=== PATIENT | female | born 1985 | race Caucasian/White ===

== ENCOUNTER 2020-09-18 12:05 | Emergency (ER) | payer SELFPAY ==
[2020-09-18 15:40] LABS: Absolute Lymphocytes (CBC) 3.1 K/uL (0.7-4.9); Basophils % 0.6 % (0-1.3); Hematocrit 40.2 % (36.0-45.0); Lymphocytes % 26.6 % (15.3-44.8); MPV 8.5 fL (7.6-11.3); RBC Red Blood Cell Count 4.98 M/uL (3.86-4.86)
[2020-09-18 15:52] LABS: Urine Blood NEGATIVE (NEG); Urine Glucose NEGATIVE (NEG); Urine Protein NEGATIVE (NEG); Urine Specific Gravity 1.025 (1.005-1.030); Urine pH 5.5 (5.0-7.0)
[2020-09-18 16:06] LABS: ALT/SGPT 27 U/L (12-78); AST/SGOT 21 U/L (15-37); Albumin 3.8 g/dL (3.4-5.0); Alkaline Phosphatase 65 U/L (45-117); BUN Blood Urea Nitrogen 7 mg/dL (7-18); Bicarbonate 27 mmol/L (21-32); Bilirubin Direct < 0.1 mg/dL (0-0.2); Bilirubin Total 0.3 mg/dL (0.2-1.0); Glucose Level 123 mg/dL (74-106); Lipase 110 U/L (73-393); Potassium 3.5 mmol/L (3.5-5.1); Protein, Total 8.5 g/dL (6.4-8.2); Sodium Level 140 mmol/L (136-145)
--- NOTE | 2020-09-18 17:13 | RAD REPORT ---
EXAM DESCRIPTION: CT - Abdomen Pelvis W Contrast - 09/18/2020 4:36 pm CLINICAL HISTORY: lower abdominal pain, blood stools COMPARISON: No comparisons TECHNIQUE: Biphasic, helical CT imaging of the abdomen and pelvis was performed following 100 ml non -ionic IV contrast. Oral contrast was given. All CT scans are performed using dose optimization technique as appropriate and may include automated exposure control or mA/KV adjustment according to patient size. FINDINGS: No suspicious findings in the lung bases. The liver, spleen, and pancreas show no suspicious findings. Gallbladder and biliary tree are also wi thout suspicious finding. Symmetric renal function is seen with no hydronephrosis or suspicious renal mass. No pyelonephritis o r acute parenchymal process. No bladder abnormalities. No adrenal abnormalities. Uterus is absent. Luis Miguel th ovaries contain several small cysts or follicles no larger than 2 cm. An acute or worrisome ovaria n process is not suspected. Stomach and small bowel show no acute findings. Circumferential wall thickening or edema seen across the transverse colon. Remainder of the colon shows no wall thickening or edema. No focal mass lesion. Appendectomy clips are evident. No free air, free fluid or inflammatory stranding. No hernia, mass or bulky lymphadenopathy. No suspicious bony findings. IMPRESSION: Colitis pattern is evident involving the entire transverse colon. No mass lesion. No obstruction, free air or surgically emergent finding.
--- NOTE | 2020-09-18 17:22 | ER ---
Nurse's Notes [facility] Name: Sapna Garrison Age: 35 yrs Sex: Female : 1985 Arrival Date: 09/18/2020 Time: 12:08 Bed 24 Private MD: Diagnosis: Transverse Colitis Presentation: 09/18 12:19 Chief complaint: Patient states: Lower abd pain/bloating for 3 days. Noticed blood in ss diarrhea stool since 3 am. No fever. Coronavirus screen: Client denies travel out of the [place] in the last 14 days. At this time, the client does not indicate any symptoms associated with coronavirus-19. Ebola Screen: Patient denies travel to an Ebola-affected area in the 21 days before illness onset. Initial Sepsis Screen: Does the patient meet any 2 criteria? No. Patient's initial sepsis screen is negative. Does the patient have a suspected source of infection? Yes: Skin breakdown/wound. Risk Assessment: Do you want to hurt yourself or someone else? Patient reports no desire to harm self or others. Onset of symptoms was September 16, 2020. 12:19 Method Of Arrival: Ambulatory ss 12:19 Acuity: GIGI 3 ss Historical: - Allergies: 12:19 Sulfa (Sulfonamide Antibiotics); ss - PMHx: 12:19 Hypertension; diabetes-no meds; ss - PSHx: 12:19 Hysterectomy; ss - Immunization history:: Flu vaccine is not up to date. - Social history:: Smoking status: Patient denies any tobacco usage or history of. Screenin:26 Abuse screen: Denies threats or abuse. Denies injuries from another. Nutritional ec1 screening: No deficits noted. Tuberculosis screening: No symptoms or risk factors identified. Fall Risk No fall in past 12 months (0 pts). No secondary diagnosis (0 pts). IV access (20 points). Ambulatory Aid- None/Bed Rest/Nurse Assist (0 pts). Gait- Normal/Bed Rest/Wheelchair (0 pts) Mental Status- Oriented to own ability (0 pts). Assessment: 15:26 General: Appears in no apparent distress. uncomfortable, Behavior is calm, cooperative. ec1 Pain: Complains of pain in abdomen Pain currently is 8 out of 10 on a pain scale. Neuro: Level of Consciousness is awake, alert, obeys commands. Cardiovascular: Patient's skin is warm and dry. Respiratory: Airway is patent Respiratory effort is even, unlabored, Respiratory pattern is regular. GI: Abdomen is round obese, Bowel sounds present X 4 quads. Abd is soft X 4 quads Abdomen is tender to palpation X 4 quads. Reports lower abdominal pain, upper abdominal pain, bloody stool, nausea, Patient currently denies vomiting. : No signs and/or symptoms were reported regarding the genitourinary system. EENT: No signs and/or symptoms were reported regarding the EENT system. Derm: No signs and/or symptoms reported regarding the dermatologic system. Musculoskeletal: No signs and/or symptoms reported regarding the musculoskeletal system. 16:17 Reassessment: Patient appears in no apparent distress at this time. No changes from ec1 previously documented assessment. Patient and/or family updated on plan of care and expected duration. Pain level reassessed. Vital Signs: 12:19 BP 160 / 93; Pulse 79; Resp 17; Temp 98.2; Pulse Ox 100% ; Weight 96.62 kg; Height 5 ss ft. 3 in. (160.02 cm); Pain 8/10; 16:17 BP 149 / 82; Pulse 69; Resp 16 S; Pulse Ox 99% on R/A; Pain 9/10; ec1 17:32 BP 153 / 90; Pulse 71; Resp 16 S; Pulse Ox 100% on R/A; ec1 12:19 Body Mass Index 37.73 (96.62 kg, 160.02 cm) ED Course: 12:08 Patient arrived in ED. mr 12:19 Arm band placed on. ss 12:22 Triage completed. ss 13:27 UA collection ok'd by Dr. Dillard. ss 15:05 Fady Nuñez PA is PHCP. [facility] 15:05 Denise Dillard MD is Attending Physician. jmm 15:05 Linda Andino, MELISSA is Primary Nurse. ec1 15:26 Patient has correct armband on for positive identification. Bed in low position. ec1 15:26 Inserted saline lock: 20 gauge in right antecubital area, using aseptic technique. ec1 Blood collected. 16:[address] via stretcher. ec1 16:36 CT Abd/Pelvis - IV Contrast Only In Process Unspecified. EDMS 17:21 Reece Cortez MD is Referral Physician. [facility] 17:44 IV discontinued, intact, bleeding controlled. ec1 17:44 No provider procedures requiring assistance completed. ec1 Administered Medications: No medications were administered Outcome: 17:21 Discharge ordered by . [facility] 17:44 Discharged to home ambulatory. ec1 17:44 Condition: good 17:44 Discharge instructions given to patient, Instructed on discharge instructions, follow up and referral plans. Demonstrated understanding of instructions, follow-up care, medications, Prescriptions given X 3. 17:45 Patient left the ED. ec1 Signatures: Dispatcher [employer] [facility] Fady Nuñez PA PA jmm Rivera, Mary mr Shilpi King, RN RN Linda Stearns RN RN ec1
--- NOTE | 2020-09-18 17:22 | EDPHYS ---
Physician Documentation [facility] Name: Sapna Garrison Age: 35 yrs Sex: Female : 1985 Arrival Date: 09/18/2020 Time: 12:08 Bed 24 Private MD: ED Physician Denise Dillard HPI: 09/18 15:19 This 35 yrs old Female presents to ER via Ambulatory with complaints of jmm Bloody Stools. 15:19 The patient presents to the emergency department with rectal bleeding, bright red blood jmm with bowel movement. Onset: The symptoms/episode began/occurred 1 day(s) ago. Abdominal pain: described as achy, crampy, located in the right upper quadrant, left upper quadrant, right lower quadrant and left lower quadrant. Modifying factors: The symptoms are alleviated by nothing, the symptoms are aggravated by nothing. Associated signs and symptoms: Pertinent negatives: diarrhea, fever, vomiting. The patient has not experienced similar symptoms in the past. Historical: - Allergies: 12:19 Sulfa (Sulfonamide Antibiotics); ss - PMHx: 12:19 Hypertension; diabetes-no meds; ss - PSHx: 12:19 Hysterectomy; ss - Immunization history:: Flu vaccine is not up to date. - Social history:: Smoking status: Patient denies any tobacco usage or history of. ROS: 15:19 Constitutional: Negative for fever, chills, and weight loss, Cardiovascular: Negative jmm for chest pain, palpitations, and edema, Respiratory: Negative for shortness of breath, cough, wheezing, and pleuritic chest pain. 15:19 Back: Negative for injury and pain, Neuro: Negative for headache, weakness, numbness, tingling, and seizure. 15:19 Abdomen/GI: Positive for abdominal pain. 15:19 All other systems are negative. Exam: 15:19 Constitutional: This is a well developed, well nourished patient who is awake, alert, jmm and in no acute distress. Head/Face: atraumatic. Eyes: EOMI, no conjunctival erythema appreciated ENT: Moist Mucus Membranes Neck: Trachea midline, Supple Chest/axilla: Normal chest wall appearance and motion. Cardiovascular: Regular rate and rhythm. No edema appreciated Respiratory: Normal respirations, no respiratory distress appreciated 15:19 Back: Normal ROM Skin: General appearance color normal MS/ Extremity: Moves all extremities, no obvious deformities appreciated, no edema noted to the lower extremities Neuro: Awake and alert, normal gait Psych: Behavior is normal, Mood is normal, Patient is cooperative and pleasant 15:19 Abdomen/GI: Inspection: abdomen appears normal, Bowel sounds: normal, Palpation: abdomen is soft and non-tender, in all quadrants. Vital Signs: 12:19 BP 160 / 93; Pulse 79; Resp 17; Temp 98.2; Pulse Ox 100% ; Weight 96.62 kg; Height 5 ss ft. 3 in. (160.02 cm); Pain 8/10; 16:17 BP 149 / 82; Pulse 69; Resp 16 S; Pulse Ox 99% on R/A; Pain 9/10; ec1 17:32 BP 153 / 90; Pulse 71; Resp 16 S; Pulse Ox 100% on R/A; ec1 12:19 Body Mass Index 37.73 (96.62 kg, 160.02 cm) ss MDM: 15:10 Patient medically screened. [facility] 17:19 Data reviewed: vital signs, nurses notes. Counseling: I had a detailed discussion with germán the patient and/or guardian regarding: the historical points, exam findings, and any diagnostic results supporting the discharge/admit diagnosis, lab results, radiology results, the need for outpatient follow up, to return to the emergency department if symptoms worsen or persist or if there are any questions or concerns that arise at home. ED course: Patient is alert and non toxic in appearance in the ED. No signs of sepsis. CT imaging reveals colitis pattern. Will discharge with abx and given strict return precautions. patient understood and agrees with the plan of care. . 09/18 15:15 Order name: Basic Metabolic Panel; Complete Time: 16:17 [facility] 09/18 15:15 Order name: CBC with Diff; Complete Time: 15:51 [facility] 09/18 15:15 Order name: Hepatic Function; Complete Time: 16:17 [facility] 09/18 15:15 Order name: Lipase; Complete Time: 16:17 [facility] 09/18 15:42 Order name: Urine Dipstick--Ancillary (enter results); Complete Time: 15:53 bd 09/18 15:42 Order name: Urine --Ancillary (enter results); Complete Time: 15:53 02/17 15:15 Order name: IV Saline Lock; Complete Time: 15:40 [facility] 09/18 15:15 Order name: Labs collected and sent; Complete Time: 15:40 [facility] 09/18 15:15 Order name: Urine Dipstick-Ancillary (obtain specimen); Complete Time: 15:40 [facility] 09/18 15:15 Order name: Urine Test (obtain specimen); Complete Time: 15:40 [facility] 09/18 16:18 Order name: CT Abd/Pelvis - IV Contrast Only; Complete Time: 17:19 [facility] Administered Medications: No medications were administered Disposition: 18:01 Co-signature as Attending Physician, Denise Dillard MD. ma2 Disposition: 09/18/20 17:21 Discharged to Home. Impression: Transverse Colitis. - Condition is Stable. - Discharge Instructions: Colitis. - Prescriptions for Bentyl 20 mg Oral Tablet - take 1 tablet by ORAL route every 6 hours As needed; 20 tablet. Flagyl 500 mg Oral Tablet - take 1 tablet by ORAL route every 6 hours for 10 days; 40 tablet. Cipro 500 mg Oral Tablet - take 1 tablet by ORAL route every 12 hours for 10 days; 20 tablet. - Medication Reconciliation Form, Thank You Letter, Antibiotic Education, Prescription Opioid Use form. - Follow up: Reece Crotez MD; When: 2 - 3 days; Reason: Recheck today's complaints, Continuance of care, Re-evaluation by your physician. Signatures: Dispatcher [employer] EDMS Fady Nuñez PA PA jmm Smirch, Shelby, RN RN Denise Dillard MD MD ny2 Linda Andino RN RN ec1 Corrections: (The following items were deleted from the chart) 17:45 17:21 09/18/2020 17:21 Discharged to Home. Impression: Transverse Colitis. Condition is ec1 Stable. Forms are Medication Reconciliation Form, Thank You Letter, Antibiotic Education, Prescription Opioid Use. Follow up: Reece Cortez; When: 2 - 3 days; Reason: Recheck today's complaints, Continuance of care, Re-evaluation by your physician. [facility]
[2020-09-18 19:24] VITALS: TEMP 98.2
[2020-09-18 19:27] VITALS: BP 153/90; O2SAT 100
== END 2020-09-18 17:45 | disposition home or self-care (01) ==
LOC: ER 12:05
DX: K52.89 Other specified noninfective gastroenteritis and colitis (principal); Z88.2 Allergy status to sulfonamides
CPT/HCPCS: 36415; 74177; 80048; 80076; 81003; 81025; 83690; 85025; 99284; Q9967